=== PATIENT | female | born 1940 | race Two or more races ===

== ENCOUNTER → 2020-10-11 | Outpatient (CLI) | payer MEDICARE ==
--- NOTE | 2020-10-11 17:08 | KCIC ---
EXAMINATION: Magnetic resonance imaging (MRI) of the lumbar spine without contrast 10/11/2020 3:30 PM HISTORY: Left L5 radiculopathy. Left leg weakness. TECHNIQUE: Multiplanar multi-weighted MRI of the lumbar spine was performed without intravenous contr ast using the standard lumbar spine protocol. Contrast information: None administered. COMPARISON: None available. FINDINGS: There is minimal retrolisthesis of L3 on L4 and L5 on S1. Vertebral body heights are maintained. 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 There is an inferior endplate Schmorl's node at T12 without marro w edema or significant height loss. There is disc desiccation at all levels of the lumbar spine. Mild endplate edema identified at L5-S1 with moderate to advanced disc height loss. There is moderate dis c height loss at L3-L4 and L4-L5. Conus medullaris terminates at L1. Distal spinal cord signal intens ity is normal in all sequences. Superimposed Schmorl's node is identified at L3 without significant h eight loss. Mild to moderate anterior marginal osteophytosis is noted. Abdominal aorta is normal in c aliber. No suspicious intraperitoneal abnormality is identified. Visualized portions of the sacrum ap pear intact. There is a simple cyst in the posterior right hepatic lobe measuring 1.5 cm. Kidneys are normal in appearance. T10-T11: There is a disc bulge with central disc protrusion. Mild facet arthropathy. There is moderat e bilateral neuroforaminal stenosis. Mild spinal canal stenosis without deformity of the conus. T11-T12: Mild disc bulge. Mild facet arthropathy. No neuroforaminal or spinal canal stenosis. T12-L1: Disc is normal in configuration. No significant facet arthropathy. No neuroforaminal or spina l canal stenosis. L1-L2: There is a disc bulge with left central disc extrusion. Mild left facet arthropathy. Mild left neuroforaminal stenosis. No spinal canal stenosis. L2-L3: There is a circumferential disc bulge. No significant facet arthropathy. Mild bilateral neurof oraminal stenosis. No spinal canal stenosis. L3-L4: There is a circumferential disc bulge. Mild facet arthropathy. Moderate right and mild to mode rate left neuroforaminal stenosis. Mild spinal canal stenosis. Minimal narrowing the right lateral re cess. L4-L5: There is a central disc protrusion. Mild to moderate facet arthropathy. Mild/moderate right an d mild left neuroforaminal stenosis. No spinal canal stenosis. L5-S1: There is a circumferential disc bulge asymmetric to the left with left far lateral disc protru sarbjit. Mild facet arthropathy. Moderate to severe left neuroforaminal stenosis. No spinal canal stenos is. 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 Electronically signed by: Brandee Maldonado MD (10/11/2020 5:06 PM) [id number]
== END ==
LOC: KCIC MRI 15:12
PROVIDERS: ATTEND Physical Medicine & Rehabilitation
DX: M47.26 Other spondylosis with radiculopathy, lumbar region (principal); M43.16 Spondylolisthesis, lumbar region; M48.061 Spinal stenosis, lumbar region without neurogenic claudication; M25.78 Osteophyte, vertebrae; K76.89 Other specified diseases of liver
CPT/HCPCS: 72148

== ENCOUNTER → 2021-08-08 | Outpatient (CLI) | payer MEDICARE ==
--- NOTE | 2021-08-08 16:35 | KCIC ---
EXAM: PA and Lateral Views of the Chest DATE: 08/08/2021 3:43 PM INDICATION: Reason: Chronic cough. / Spl. Instructions: Cough for 2 months, hx. asthma, nonsmoker. / History: COMPARISON: No Prior FINDINGS: The heart is not enlarged. Mediastinal and hilar contours are stable. No focal parenchymal airspace opacity. No pleural effusion or pneumothorax. Moderate to severe disc height loss at several mid and lower thoracic vertebral bodies IMPRESSION: 1. No radiographic evidence for acute cardiopulmonary process. Electronically signed by: Maxx Nielsen MD (08/08/2021 4:32 PM) [facility]
== END ==
LOC: KCIC 15:38
PROVIDERS: ATTEND Family Medicine
DX: R05.3 Chronic cough (principal); M51.34 Other intervertebral disc degeneration, thoracic region
CPT/HCPCS: 71046